=== PATIENT | male | born 1985 | race Caucasian/White ===

== ENCOUNTER 2025-05-26 06:02 | Day surgery (SDC) | payer OTHER ==
[~2025-05-26] VITALS: Ht 177.8 cm; Wt 83.1 kg
[~2025-05-26 06:02] MED LIST: THERTAB52 PO
[2025-05-26] MEDS: LR 1,000 ML IV SCH (06:30)
[2025-05-26] MEDS: EPINEPHrine 1 MG/ML INJ 30 ML MD-VIAL As Ordered ONE (07:15)
[2025-05-26] MEDS ORDERED: ONDANSETRON 4MG/2ML VIAL As Ordered ONE (07:22)
[2025-05-26] MEDS ORDERED: dexAMETHasone 4 MG/ML 1 ML VIAL As Ordered ONE (07:22)
[2025-05-26] MEDS ORDERED: LIDOCAINE 2% 100 MG/5 ML SDV (FOR ANES.) As Ordered ONE (07:22)
[2025-05-26] MEDS ORDERED: MIDAZOLAM INJ 2 MG/2 ML VIAL As Ordered ONE (07:23)
[2025-05-26] MEDS ORDERED: dexmedeTOMIDine (4 MCG/ML) 200 MCG/50 ML BTL As Ordered ONE (07:49)
[2025-05-26] MEDS: ceFAZolin SOD 2 GM IV ONCE IV ONE (08:00)
[2025-05-26] MEDS: TRANEXAMIC ACID 100 MG/ML 10ML VIAL As Ordered ONE (08:05)
[2025-05-26] MEDS ORDERED: ACETAMINOPHEN 1000MG/100ML IV BAG As Ordered ONE (08:39)
[2025-05-26] MEDS ORDERED: KETOROLAC 30 MG/ML 1 ML VIAL As Ordered ONE (08:45)
[2025-05-26] MEDS ORDERED: ONDANSETRON 4MG/2ML VIAL IV PRN (09:05)
[2025-05-26] MEDS ORDERED: MEPERIDINE 25 MG/ML 1 ML VIAL IV PRN (09:05)
[2025-05-26] MEDS ORDERED: HYDROMORPHONE HCL 0.5 MG/0.5 ML SYRINGE IV PRN (09:05)
[2025-05-26 09:40] VITALS: TEMP 96.8
[2025-05-26 10:10] VITALS: BP 130/74; O2SAT 96
== END 2025-05-26 10:13 | disposition home or self-care (01) ==
LOC: M SDC 06:02
PROVIDERS: ATTEND Student in an Organized Health Care Education/Training Program
DX: M22.42 Chondromalacia patellae, left knee (principal)
CPT/HCPCS: 29877; J0131; J0165; J0665; J0688; J1100; J1885; J2250; J2405; J3010